=== PATIENT | female | born 1970 | race Asian ===

== ENCOUNTER → 2017-10-24 | Outpatient (CLI) | payer MEDICAID, OTHER ==
[~2017-10-24] MED LIST: None per pt
== END ==
LOC: CFH 12:35
PROVIDERS: ATTEND Obstetrics & Gynecology
DX: N63.13 Unspecified lump in the right breast, lower outer quadrant (principal)
CPT/HCPCS: 77066

== ENCOUNTER → 2017-10-28 | Outpatient (CLI) | payer OTHER ==
[~2017-10-28] MED LIST changes: +GADOBUTROL 10 MMOL/10 ML VIAL ONE; +LIDOCAINE 1%, 20ML ONE; +LIDOCAINE 1%-EPI 1:100K, 50ML ONE; +OMNIPAQUE 350 MG/ML, 100ML BOTTLE ONE; +SODIUM BICARBONATE 4.2%, 5ML ONE
== END | disposition home or self-care (01) ==
LOC: CFH 09:15
PROVIDERS: ATTEND Obstetrics & Gynecology
DX: N63.10 Unspecified lump in the right breast, unspecified quadrant (principal); R92.8 Other abnormal and inconclusive findings on diagnostic imaging of breast
CPT/HCPCS: 19083; 19084; 38505; 71260; 74177; 77065; 88305; 88333; A9585; C8908; J3490; Q9967

== ENCOUNTER → 2017-10-31 | Outpatient (CLI) | payer OTHER ==
[~2017-10-31] MED LIST changes: -GADOBUTROL 10 MMOL/10 ML VIAL ONE; -LIDOCAINE 1%, 20ML ONE; -LIDOCAINE 1%-EPI 1:100K, 50ML ONE; -OMNIPAQUE 350 MG/ML, 100ML BOTTLE ONE; -SODIUM BICARBONATE 4.2%, 5ML ONE
== END | disposition home or self-care (01) ==
LOC: RAD 10:16
PROVIDERS: ATTEND Obstetrics & Gynecology
DX: C50.911 Malignant neoplasm of unspecified site of right female breast (principal)
CPT/HCPCS: 78306; A9503

== ENCOUNTER → 2017-11-02 | Outpatient (CLI) | payer OTHER ==
[~2017-11-02] MED LIST changes: +LEVO50TA PO; +ROSU10TA PO
== END | disposition home or self-care (01) ==
LOC: PETCFH 10:43
PROVIDERS: ATTEND Obstetrics & Gynecology
DX: C50.911 Malignant neoplasm of unspecified site of right female breast (principal); N63.10 Unspecified lump in the right breast, unspecified quadrant; R59.0 Localized enlarged lymph nodes
CPT/HCPCS: 78815; A9552

== ENCOUNTER → 2017-11-04 | Outpatient (CLI) | payer OTHER ==
[~2017-11-04] MED LIST changes: +LIDOCAINE 1%, 20ML ONE; +LIDOCAINE 1%-EPI 1:100K, 20ML ONE; +SODIUM BICARBONATE 4.2%, 5ML ONE
== END | disposition home or self-care (01) ==
LOC: CFH 09:16
PROVIDERS: ATTEND Obstetrics & Gynecology
DX: C50.911 Malignant neoplasm of unspecified site of right female breast (principal); E03.9 Hypothyroidism, unspecified; Z79.899 Other long term (current) drug therapy
CPT/HCPCS: 19285; 93306; J3490

== ENCOUNTER 2017-11-07 08:25 | Day surgery (SDC) | payer OTHER ==
[~2017-11-07] VITALS: Ht 165.1 cm; Wt 80.6 kg
[~2017-11-07 08:25] MED LIST changes: -LEVO50TA PO; -LIDOCAINE 1%, 20ML ONE; -LIDOCAINE 1%-EPI 1:100K, 20ML ONE; -ROSU10TA PO; -SODIUM BICARBONATE 4.2%, 5ML ONE
[2017-11-07 08:55] VITALS: BP 128/88
[2017-11-07] MEDS ORDERED: SODIUM CHLORIDE 0.9% 1,000 ML IV SCH (08:56)
[2017-11-07] MEDS ORDERED: LEVO50TA PO (08:59)
[2017-11-07] MEDS ORDERED: ROSU10TA PO (08:59)
[2017-11-07] MEDS ORDERED: CEFAZOLIN PMX 1GM/50ML 50 ML IV ONE (09:00)
[2017-11-07] MEDS ORDERED: CEFAZOLIN PMX 1GM/50ML 50 ML ONE (09:02)
[2017-11-07] MEDS ORDERED: FLUMAZENIL 0.1 MG/1 ML, 5ML ONE (09:54)
[2017-11-07] MEDS ORDERED: FENTANYL PF 100 MCG/2ML ONE (09:54)
[2017-11-07] MEDS ORDERED: MIDAZOLAM 1 MG/ML, 5ML ONE (09:54)
[2017-11-07] MEDS ORDERED: NALOXONE 1 MG/ML, 2ML ONE (09:54)
[2017-11-07] MEDS ORDERED: LIDOCAINE-MPF 2% ,5ML ONE (10:10)
[2017-11-07] MEDS ORDERED: HYDROcodone/APAP 5/325 TABLET ONE (13:12)
[2017-11-07] MEDS ORDERED: HYDROcodone/APAP 5/325 TABLET PO ONE (13:30)
== END 2017-11-07 14:05 ==
LOC: OUT 08:25
PROVIDERS: ATTEND Internal Medicine Hematology & Oncology
DX: Z45.2 Encounter for adjustment and management of vascular access device (principal); C50.911 Malignant neoplasm of unspecified site of right female breast
CPT/HCPCS: 36561; 76937; 77001; 99156; 99157; C1788; J0690; J1642; J2250; J3010; J3490; J7030; 36558; J2310

== ENCOUNTER → 2018-02-09 | Outpatient (CLI) | payer OTHER ==
[~2018-02-09] MED LIST changes: +LEVO50TA PO; +ROSU10TA PO
== END | disposition home or self-care (01) ==
LOC: CFH 10:30
PROVIDERS: ATTEND Internal Medicine Hematology & Oncology
DX: K76.9 Liver disease, unspecified (principal); C50.911 Malignant neoplasm of unspecified site of right female breast
CPT/HCPCS: 76705

== ENCOUNTER → 2018-02-24 | Outpatient (CLI) | payer OTHER | END | disposition home or self-care (01) | LOC: CFH 12:17 | PROVIDERS: ATTEND Surgery | DX: Z08 Encounter for follow-up examination after completed treatment for malignant neoplasm (principal); C50.911 Malignant neoplasm of unspecified site of right female breast; R60.0 Localized edema | CPT/HCPCS: 77065 ==

== ENCOUNTER → 2018-02-27 | Outpatient (CLI) | payer OTHER ==
[~2018-02-27] MED LIST changes: +GADOBUTROL 7.5 MMOL/7.5 ML PFS ONE
== END | disposition home or self-care (01) ==
LOC: CFH 12:42
PROVIDERS: ATTEND Surgery
DX: C50.511 Malignant neoplasm of lower-outer quadrant of right female breast (principal)
CPT/HCPCS: A9585; C8908

== ENCOUNTER → 2018-03-02 | Outpatient (CLI) | payer OTHER ==
[~2018-03-02] MED LIST changes: -GADOBUTROL 7.5 MMOL/7.5 ML PFS ONE; +OMNIPAQUE 350 MG/ML, 100ML BOTTLE ONE
== END | disposition home or self-care (01) ==
LOC: RAD 09:40
PROVIDERS: ATTEND Internal Medicine Hematology & Oncology
DX: C50.511 Malignant neoplasm of lower-outer quadrant of right female breast (principal); C50.411 Malignant neoplasm of upper-outer quadrant of right female breast; D25.9 Leiomyoma of uterus, unspecified
CPT/HCPCS: 71260; 74177; J1642; Q9967

== ENCOUNTER → 2018-04-10 | Outpatient (CLI) | payer OTHER ==
[~2018-04-10] MED LIST changes: -OMNIPAQUE 350 MG/ML, 100ML BOTTLE ONE
== END | disposition home or self-care (01) ==
LOC: ROC 08:45
PROVIDERS: ATTEND Radiology Radiation Oncology
DX: C50.911 Malignant neoplasm of unspecified site of right female breast (principal)
CPT/HCPCS: 99214; G0463

== ENCOUNTER → 2018-05-04 | Outpatient (CLI) | payer OTHER ==
[~2018-05-04] MED LIST changes: +GADOBUTROL 7.5 MMOL/7.5 ML PFS ONE
== END | disposition home or self-care (01) ==
LOC: RAD 11:23
PROVIDERS: ATTEND Internal Medicine Hematology & Oncology
DX: M50.322 Other cervical disc degeneration at C5-C6 level (principal); M50.222 Other cervical disc displacement at C5-C6 level; C50.911 Malignant neoplasm of unspecified site of right female breast
CPT/HCPCS: 72156; A9585; J1642

== ENCOUNTER 2018-05-18 13:46 | Outpatient (CLI) | payer OTHER ==
[~2018-05-18 13:46] MED LIST changes: -GADOBUTROL 7.5 MMOL/7.5 ML PFS ONE
== END 2018-05-18 23:59 | disposition home or self-care (01) ==
LOC: CFH 13:46
PROVIDERS: ATTEND Internal Medicine Hematology & Oncology
DX: C50.911 Malignant neoplasm of unspecified site of right female breast (principal)
CPT/HCPCS: 93306

== ENCOUNTER → 2018-07-10 | Outpatient (CLI) | payer OTHER ==
[~2018-07-10] MED LIST changes: -ROSU10TA PO; +ROSU10TA2 PO
== END | disposition home or self-care (01) ==
LOC: CFH 10:23
PROVIDERS: ATTEND Internal Medicine Hematology & Oncology
DX: Z13.820 Encounter for screening for osteoporosis (principal); Z78.0 Asymptomatic menopausal state; Z85.3 Personal history of malignant neoplasm of breast
CPT/HCPCS: 77080

== ENCOUNTER → 2018-07-17 | Outpatient (CLI) | payer OTHER | END | disposition home or self-care (01) | LOC: EDSTATUS 07-08 14:21 → ROC 07:58 | PROVIDERS: ATTEND Radiology Radiation Oncology | DX: Z08 Encounter for follow-up examination after completed treatment for malignant neoplasm (principal); C50.911 Malignant neoplasm of unspecified site of right female breast; Z17.0 Estrogen receptor positive status [ER+]; Z90.11 Acquired absence of right breast and nipple | CPT/HCPCS: 99213; G0463 ==

== ENCOUNTER → 2018-08-21 | Outpatient (CLI) | payer OTHER ==
[~2018-08-21] MED LIST changes: +OMNIPAQUE 350 MG/ML, 100ML BOTTLE ONE
== END | disposition home or self-care (01) ==
LOC: CFH 09:05
PROVIDERS: ATTEND Internal Medicine Hematology & Oncology
DX: C50.911 Malignant neoplasm of unspecified site of right female breast (principal); J98.4 Other disorders of lung; R91.8 Other nonspecific abnormal finding of lung field; K57.30 Diverticulosis of large intestine without perforation or abscess without bleeding; K76.9 Liver disease, unspecified; Z90.11 Acquired absence of right breast and nipple; Z85.3 Personal history of malignant neoplasm of breast
CPT/HCPCS: 71260; 74177; 93308; 93321; 93325; Q9967

== ENCOUNTER 2018-09-02 02:11 | Emergency (ER) | payer OTHER ==
[~2018-09-02] VITALS: Ht 162.6 cm; Wt 80.0 kg
[~2018-09-02 02:11] MED LIST changes: -OMNIPAQUE 350 MG/ML, 100ML BOTTLE ONE
[2018-09-02] MEDS ORDERED: OXYcodone/APAP 5/325MG TABLET PO ONE (03:00)
--- NOTE | 2018-09-02 03:00 | NUR ---
FIRST CONTACT WITH PT. PT PRESENTS TO ED W/ RECTUM PAIN SINCE TUESDAY W/ RASH PRESENT. DENIES ANY BLOOD IN STOOL. PT HAS HX OF BREAST CANCER. PT USED CHEMO. PT'S AOX4. RESPS EVEN AND UNLABORED. BP/SPO2 MONITORS IN PLACE. CALL LIGHT WITHIN REACH.
[2018-09-02] MEDS ORDERED: OXYcodone/APAP 5/325MG TABLET ONE (03:02)
--- NOTE | 2018-09-02 03:07 | NUR ---
PT MEDICATED PER EMAR. PT TOLERATED WELL. PT'S AOX4. RESPS EVEN AND UNLABORED.
[2018-09-02 03:45] VITALS: BP 108/70
--- NOTE | 2018-09-02 03:46 | NUR ---
PT GIVEN DC INSTRUCTIONS AND SCRIPT. PT'S AOX4. RESPS EVEN AND UNLABORED. PT AMB TO DC WITH STEADY GAIT. NO ACUTE DISTRESS AT DC.
== END 2018-09-02 03:47 | disposition home or self-care (01) ==
LOC: ED 03:40
DX: L29.0 Pruritus ani (principal); E03.9 Hypothyroidism, unspecified; E78.5 Hyperlipidemia, unspecified; Z85.3 Personal history of malignant neoplasm of breast
CPT/HCPCS: 99283

== ENCOUNTER → 2018-11-01 | Outpatient (CLI) | payer OTHER | END | disposition home or self-care (01) | LOC: CFH 09:03 | PROVIDERS: ATTEND Internal Medicine Hematology & Oncology | DX: Z12.31 Encounter for screening mammogram for malignant neoplasm of breast (principal); Z85.3 Personal history of malignant neoplasm of breast | CPT/HCPCS: 77067 ==

== ENCOUNTER → 2018-11-10 | Outpatient (CLI) | payer OTHER | END | disposition home or self-care (01) | LOC: ROC 07:28 | PROVIDERS: ATTEND Radiology Radiation Oncology | DX: C50.911 Malignant neoplasm of unspecified site of right female breast (principal) | CPT/HCPCS: 99212; G0463 ==

== ENCOUNTER 2018-12-01 15:27 | Outpatient (CLI) | payer OTHER | END 2018-12-01 23:59 | disposition home or self-care (01) | LOC: RAD 15:27 | PROVIDERS: ATTEND Internal Medicine Hematology & Oncology | DX: C50.911 Malignant neoplasm of unspecified site of right female breast (principal); R91.1 Solitary pulmonary nodule | CPT/HCPCS: 71260; J1642; Q9967 ==

== ENCOUNTER 2019-02-27 07:27 | Day surgery (SDC) | payer OTHER ==
[~2019-02-27] VITALS: Ht 165.1 cm; Wt 78.6 kg
[2019-02-27] MEDS ORDERED: SODIUM CHLORIDE 0.9% 1,000 ML IV SCH (07:52)
[2019-02-27 07:53] VITALS: BP 100/70
[2019-02-27] MEDS ORDERED: LIDOCAINE 1%, 20ML ONE (08:53)
[2019-02-27] MEDS ORDERED: NALOXONE 1 MG/ML, 2ML ONE (08:56)
[2019-02-27] MEDS ORDERED: MIDAZOLAM 1 MG/ML, 5ML ONE (08:56)
[2019-02-27] MEDS ORDERED: FLUMAZENIL 0.1 MG/1 ML, 5ML ONE (08:56)
[2019-02-27] MEDS ORDERED: FENTANYL PF 100 MCG/2ML ONE (08:56)
== END 2019-02-27 11:15 | disposition home or self-care (01) ==
LOC: OUT 07:27
PROVIDERS: ATTEND Internal Medicine Hematology & Oncology
DX: Z45.2 Encounter for adjustment and management of vascular access device (principal); C50.911 Malignant neoplasm of unspecified site of right female breast; E03.9 Hypothyroidism, unspecified; Z98.890 Other specified postprocedural states
CPT/HCPCS: 36590; 99156; 99157; J2250; J3010; J7030; 77001; J2310

== ENCOUNTER → 2019-05-29 | Outpatient (CLI) | payer OTHER ==
[~2019-05-29] MED LIST changes: +ANAS1TAB PO; +CALC1CAP8 PO; +LEUP3.75 INJ; +ROSU20TA2 PO
[2019-05-29 10:24] LABS: BASOPHILS # (AUTO) 0.03 x10^3/uL (0-0.1); BASOPHILS % (AUTO) 1 % (0-1); EOSINOPHILS # (AUTO) 0.05 x10^3/uL (0-0.4); EOSINOPHILS % (AUTO) 1 % (1-7); LYMPHOCYTES # (AUTO) 1.38 x10^3/uL (1-3.4); LYMPHOCYTES % (AUTO) 24 % (22-44); MD NO; MEAN CORPUSCULAR HEMOGLOBIN 27.6 pg (27.0-34.8); MEAN CORPUSCULAR HGB CONC 32.8 g/dL (32.4-35.8); MEAN CORPUSCULAR VOLUME 84.1 fL (80-100); MEAN PLATELET VOLUME 7.3 fL (7.4-10.4); MONOCYTES # (AUTO) 0.35 x10^3/uL (0.2-0.8); MONOCYTES % (AUTO) 6 % (2-9); NEUTROPHILS # (AUTO) 4.02 x10^3/uL (1.8-6.8); NEUTROPHILS % (AUTO) 69 % (42-75); PLATELET COUNT 285 x10^3/uL (130-400); RED BLOOD COUNT 4.71 x10^6/uL (3.82-5.3)
[2019-05-29 10:32] LABS: MICROSCOPIC NOT IND
[2019-05-29 10:34] LABS: ALBUMIN 3.6 g/dL (3.4-5.0); ANION GAP 5 mmol/L (5-15); CALCIUM 9.5 mg/dL (8.5-10.1); CHLORIDE 106 mmol/L (98-107)
[2019-05-29 10:40] LABS: ALANINE AMINOTRANSFERASE 30 U/L (12-78); ALKALINE PHOSPHATASE 91 U/L (45-117); BILIRUBIN,TOTAL 0.9 mg/dL (0.2-1.0); CREATININE 0.75 mg/dL (0.55-1.02); TOTAL PROTEIN 8.4 g/dL (6.4-8.2)
[2019-05-29 10:42] LABS: CULTURE INDICATED? NO
== END | disposition home or self-care (01) ==
LOC: STAR 09:16
PROVIDERS: ATTEND Obstetrics & Gynecology
DX: Z01.818 Encounter for other preprocedural examination (principal); C50.911 Malignant neoplasm of unspecified site of right female breast; D25.9 Leiomyoma of uterus, unspecified
CPT/HCPCS: 36415; 80053; 81003; 84702; 85025

== ENCOUNTER 2019-06-07 05:49 | Day surgery (SDC) | payer OTHER ==
[~2019-06-07] VITALS: Ht 162.6 cm; Wt 80.2 kg
[2019-06-07 06:22] VITALS: BP 106/75
[2019-06-07] MEDS ORDERED: LACTATED RINGERS 1,000 ML IV SCH (06:26)
[2019-06-07] MEDS ORDERED: LIDOCAINE-MPF 1%, 2ML ONE (06:28)
[2019-06-07 06:53] LABS: HCG UR SG 1.017 (1.003-1.030)
[2019-06-07] MEDS ORDERED: ACETAMINOPHEN 500 MG TABLET PO ONE (07:00)
[2019-06-07] MEDS ORDERED: DIAZEPAM 5 MG TABLET PO ONE (07:00)
[2019-06-07] MEDS ORDERED: SCOPOLAMINE PATCH, 1.5MG PATCH.TD72 TD ONE (07:00)
[2019-06-07] MEDS ORDERED: FLUORESCEIN SODIUM 500 MG/5 ML ONE (07:07)
[2019-06-07] MEDS ORDERED: SILVER NITRATE STICK TP ONE (07:07)
[2019-06-07] MEDS ORDERED: BUPIVACAINE/PF-EPI 0.25% 1:200K ONE (07:07)
[2019-06-07] MEDS ORDERED: FENTANYL PF 250 MCG/5ML ONE (07:16)
[2019-06-07] MEDS ORDERED: MIDAZOLAM 1 MG/ML, 2ML ONE (07:16)
[2019-06-07] MEDS ORDERED: LORazepam 2 MG/ML, 1ML IVPush PRN (07:30)
[2019-06-07] MEDS ORDERED: ONDANSETRON ODT 8 MG PO PRN (07:30)
[2019-06-07] MEDS ORDERED: ONDANSETRON 2MG/ML, 2ML IV PRN (07:30)
[2019-06-07] MEDS ORDERED: HYDROmorphone 2 MG/ML, 1ML IVPush PRN (07:30)
[2019-06-07] MEDS ORDERED: PROMETHAZINE 25 MG SUPP PR PRN (07:30)
[2019-06-07] MEDS ORDERED: PROMETHAZINE 25 MG/ML, 1ML IV PRN (07:30)
[2019-06-07] MEDS ORDERED: OXYcodone 5 MG/5 ML ORAL.SOL UDC PO PRN (07:30)
[2019-06-07] MEDS ORDERED: SUGAMMADEX 200 MG/2 ML IVPush ONE (08:51)
[2019-06-07] MEDS ORDERED: CEFAZOLIN 1,000 MG ONE (08:51)
[2019-06-07] MEDS ORDERED: PROPOFOL 10 MG/ML, 20ML ONE (08:51)
[2019-06-07] MEDS ORDERED: ROCURONIUM 10MG/ML,5ML ONE (08:51)
[2019-06-07] MEDS ORDERED: NEOSTIGMINE 1 MG/ML, 10ML ONE (08:51)
[2019-06-07] MEDS ORDERED: DEXAMETHASONE 4 MG/ML, 1ML ONE (08:51)
[2019-06-07] MEDS ORDERED: GLYCOPYRROLATE 0.2MG/1ML, 5ML ONE (08:51)
[2019-06-07] MEDS ORDERED: ONDANSETRON 2MG/ML, 2ML ONE (08:51)
[2019-06-07] MEDS ORDERED: SUCCINYLCHOLINE 20 MG/ML, 10ML ONE (08:51)
[2019-06-07] MEDS ORDERED: FENTANYL PF 100 MCG/2ML ONE (09:16)
[2019-06-07] MEDS ORDERED: OXYcodone 5 MG/5 ML ORAL.SOL UDC ONE (09:17)
[2019-06-07] MEDS: FENTANYL PF 100 MCG/2ML IV PRN ×2 (09:21→09:38)
[2019-06-07] MEDS ORDERED: MEPERIDINE/PF 25MG/ML,1ML ONE (10:06)
[2019-06-07] MEDS ORDERED: PROMETHAZINE 25 MG/ML, 1ML ONE (10:13)
[2019-06-07] MEDS ORDERED: MEPERIDINE/PF 25MG/0.5ML IVPush PRN (10:30)
[2019-06-07] MEDS ORDERED: OXYcodone/APAP 5/325MG TABLET ONE (17:07)
== END 2019-06-07 19:15 | disposition home or self-care (01) ==
LOC: OUT 05:49
PROVIDERS: ATTEND Obstetrics & Gynecology
DX: D25.0 Submucous leiomyoma of uterus (principal); N85.8 Other specified noninflammatory disorders of uterus; E03.9 Hypothyroidism, unspecified; E78.00 Pure hypercholesterolemia, unspecified; Z85.3 Personal history of malignant neoplasm of breast; Z90.11 Acquired absence of right breast and nipple
CPT/HCPCS: 36415; 58552; 81025; 86850; 86900; 88307; J0690; J1100; J2175; J2250; J2405; J2550; J2704; J3010; J7120; J2710; J0330

== ENCOUNTER 2019-09-03 07:33 | Outpatient (CLI) | payer OTHER | END 2019-09-03 23:59 | disposition home or self-care (01) | LOC: ROC 07:33 | PROVIDERS: ATTEND Radiology Radiation Oncology | DX: C50.811 Malignant neoplasm of overlapping sites of right female breast (principal) | CPT/HCPCS: 99213; G0463 ==

== ENCOUNTER 2019-11-05 09:09 | Outpatient (CLI) | payer OTHER ==
[2019-11-06] MEDS ORDERED: EPHEDRINE 50 MG/ML, 1ML ONE (07:04)
[2019-11-06] MEDS ORDERED: EPINEPHRINE 1 MG/ML, 1ML ONE (07:04)
[2019-11-06] MEDS ORDERED: CEFAZOLIN 1,000 MG ONE (07:04)
[2019-11-06] MEDS ORDERED: FENTANYL PF 100 MCG/2ML ONE (07:04)
[2019-11-06] MEDS ORDERED: OXYTOCIN 10 UNITS/ML, 1ML ONE (07:12)
== END 2019-11-05 23:59 | disposition home or self-care (01) ==
LOC: CFH 09:09
PROVIDERS: ATTEND Radiology Radiation Oncology
DX: Z12.31 Encounter for screening mammogram for malignant neoplasm of breast (principal); N64.89 Other specified disorders of breast
CPT/HCPCS: 77067; J0171; J0690; J3010; J2590

== ENCOUNTER → 2019-12-12 | Outpatient (CLI) | payer OTHER | END | disposition home or self-care (01) | LOC: CFH 09:34 | PROVIDERS: ATTEND Internal Medicine Hematology & Oncology | DX: C50.911 Malignant neoplasm of unspecified site of right female breast (principal); M51.27 Other intervertebral disc displacement, lumbosacral region; M47.817 Spondylosis without myelopathy or radiculopathy, lumbosacral region | CPT/HCPCS: 72131 ==

== ENCOUNTER → 2020-03-05 | Outpatient (CLI) | payer OTHER | END | disposition home or self-care (01) | LOC: ROC 07:39 | PROVIDERS: ATTEND Radiology Radiation Oncology | DX: C50.911 Malignant neoplasm of unspecified site of right female breast (principal) | CPT/HCPCS: 99213; G0463 ==

== ENCOUNTER 2020-08-13 07:40 | Outpatient (CLI) | payer OTHER | END 2020-08-13 23:59 | disposition home or self-care (01) | LOC: ROC 07:40 | PROVIDERS: ATTEND Radiology Radiation Oncology | DX: Z08 Encounter for follow-up examination after completed treatment for malignant neoplasm (principal); Z85.3 Personal history of malignant neoplasm of breast | CPT/HCPCS: 99212; G0463 ==

== ENCOUNTER 2020-08-21 10:00 | Outpatient (CLI) | payer OTHER | END 2020-08-21 23:59 | disposition home or self-care (01) | LOC: CFH 10:00 | PROVIDERS: ATTEND Radiology Radiation Oncology | DX: C50.811 Malignant neoplasm of overlapping sites of right female breast (principal); D24.2 Benign neoplasm of left breast | CPT/HCPCS: 77061; 77065; G0279 ==

== ENCOUNTER → 2020-11-07 | Outpatient (CLI) | payer OTHER | END | disposition home or self-care (01) | LOC: CFH 10:26 | PROVIDERS: ATTEND Internal Medicine Hematology & Oncology | DX: Z12.31 Encounter for screening mammogram for malignant neoplasm of breast (principal); C50.911 Malignant neoplasm of unspecified site of right female breast | CPT/HCPCS: 77063; 77067 ==

== ENCOUNTER → 2020-12-10 | Outpatient (CLI) | payer OTHER | END | disposition home or self-care (01) | LOC: CFH 09:38 | PROVIDERS: ATTEND Internal Medicine Hematology & Oncology | DX: C50.911 Malignant neoplasm of unspecified site of right female breast (principal); M85.89 Other specified disorders of bone density and structure, multiple sites | CPT/HCPCS: 77080 ==